=== PATIENT | female | born 1960 | race Caucasian/White ===

== ENCOUNTER 2016-06-29 19:47 | Emergency (ER) | payer OTHER ==
[~2016-06-29] VITALS: Ht 154.9 cm; Wt 53.0 kg
[~2016-06-29 19:47] MED LIST: ESTRGEL TOP; PRIL20CA PO; VITA200017 PO
[2016-06-29 20:09] VITALS: BP 133/70; PULSE 84; RESP 16; TEMP 98.2; O2SAT 96
[2016-06-29 20:34] VITALS: BP 133/70; PULSE 84; RESP 18; TEMP 98.5; O2SAT 96
--- NOTE | 2016-06-29 20:44 | PD ---
HPI Chief Complaint: Musculoskeletal Complaint Time Seen by Provider: 20:32 Travel History International Travel<30 days: No Contact w/Intl Traveler<30days: No Traveled to known affect area: No History of Present Illness HPI The patient is a 56-year-old female that complains of pain in the right lateral ribs for one day. 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 She states that she can reproduce the pain by doing the same activity. She states there is some connection when she urinates it feels better. There is no radiation of pain other than to the normal distribution of the intercostal nerves around T11 on the right only. She denies any fever, dysuria , cough, frequency, urgency or shortness of breath. She denies any nausea, vomiting or diarrhea. She denies any history of trauma. PFSH Past Medical History Cancer: No Cardiovascular Problems: No Diabetes: No Diminished Hearing: No Endocrine: No Gastrointestinal Disorders: Yes (ACID REFLUX, HIATAL HERNIA) Genitourinary: No Hepatitis: No Hiatal Hernia: Yes Immune Disorder: No Musculoskeletal: Yes (BACK PROBLEMS) Neurologic: No Psychiatric: Yes (SLIGHTLY CLAUSTROPHOBIC) Reproductive: Yes (POST MENOPAUSAL BLEEDING) Respiratory: No Immunizations Current: Yes Thyroid Disease: No Tetanus Vaccination: < 5 Years Influenza Vaccination: Yes ?: Not Menopausal: Yes Past Surgical History AICD: No Body Medical Devices: BILATERAL BREAST AUGMENTATION Joint Replacement: No Oral Surgery: Yes (T & A) Pacemaker: No Thoracic Surgery: Yes (JATIN BREAST AUGMENTATION 2001) Other Surgery: Yes (BILATERAL BREAST IMPLANTS) Social History Alcohol Use: No Tobacco Use: No Substance Use: No Allergies-Medications (Allergen,Severity, Reaction): Coded Allergies: No Known Allergies (Verified , 01/10/14) Reported Meds & Prescriptions Reported Meds & Active Scripts Active Reported Vitamin D3 (Cholecalciferol) 2,000 Unit Cap 2,000 Unit PO DAILY Prilosec (Omeprazole) 20 Mg Capcr 20 Mg PO DAILY Estrogel (Estradiol) Gel 1 Dose TOP DAILY Review of Systems Except as stated in HPI: all other systems reviewed are Neg Physical Exam Narrative GENERAL: The patient is alert, oriented 3 minimal apparent distress with her right lower lateral rib pain. Her vital signs are normal. SKIN: Warm and dry. HEAD: Atraumatic. Normocephalic. EYES: Pupils equal and round. No scleral icterus. No injection or drainage. ENT: No nasal bleeding or discharge. Mucous membranes pink and moist. NECK: Trachea midline. No JVD. CARDIOVASCULAR: Regular rate and rhythm. No murmur appreciated. RESPIRATORY: No accessory muscle use. Clear to auscultation. Breath sounds equal bilaterally. There is tenderness on the right lateral lower ribs. This partially reproduces the patient's pain. GASTROINTESTINAL: Abdomen soft, non-tender, nondistended. Hepatic and splenic margins not palpable. MUSCULOSKELETAL: No obvious deformities. No clubbing. No cyanosis. No edema. NEUROLOGICAL: Awake and alert. No obvious cranial nerve deficits. Motor grossly within normal limits. Normal speech. PSYCHIATRIC: Appropriate mood and affect; insight and judgment normal. Data Data Last Documented VS Vital Signs Date Time Temp Pulse Resp B/P Pulse Ox O2 Delivery O2 Flow Rate FiO2 06/29/16 20:37 84 18 06/29/16 20:34 98.5 133/70 96 Orders Urinalysis - C+S If Indicated (06/29/16 20:44) Ketorolac Inj (Toradol Inj) (06/29/16 21:15) Labs Laboratory Tests Test 06/29/16 20:50 Urine Color STRAW Urine Turbidity CLEAR Urine pH 6.0 Urine Specific [place] 1.009 Urine Protein NEG mg/dL Urine Glucose (UA) NEG mg/dL Urine Ketones NEG mg/dL Urine Occult Blood SMALL Urine Nitrite NEG Urine Bilirubin NEG Urine Leukocyte Esterase NEG Urine RBC 4-9 /hpf Urine Squamous Epithelial 0-5 /hpf Cells Urine Bacteria OCC /hpf Urine Mucus OCC /lpf Microscopic Urinalysis Comment CULT NOT INDICATED MDM Medical Decision Making Medical Screen Exam Complete: Yes Emergency Medical Condition: Yes Medical Record Reviewed: Yes Interpretation(s) The urine shows clear turbidity but small amount of occult blood and 4-9 red cells with occasional bacteria and culture is not indicated. Differential Diagnosis Urinary stone, musculoskeletal pain, pleurisy, fracture ribsunlikely Narrative Course The patient appears to have musculoskeletal pain. It is possible that she could have a urinary stone with minimal symptoms. She has no nausea and the pain is not as significant as one would expect from a stone in the ureter. She does have some blood in the urine. Diagnosis Primary Impression: Musculoskeletal pain Additional Instructions: As we discussed, if you develop nausea. Please return to emergency department and we should do a CAT scan. Musculoskeletal pain would not cause nausea. Follow-up next week with your primary care physician. Take the Motrin regularly , 1 tablet 3 times daily. Med/Other Pt SpecificInfo: Prescription(s) given Scripts Ibuprofen 600 Mg [id number] Mg PO TID #45 TAB Ref 0 Prov:León Rice MD 06/29/16 Disposition: 01 DISCHARGE HOME Condition: Stable León Rice MD Jun 29, 2016 20:44
[2016-06-29 20:54] LABS: BLOOD, URINE SMALL (NEG); GLUCOSE,URINE NEG (NEG); KETONE, URINE NEG (NEG); NITRITE,URINE NEG (NEG)
[2016-06-29 21:03] LABS: URINE COLOR STRAW (YELLW/STRAW)
[2016-06-29 21:04] LABS: MUCUS URINE OCC /lpf (OCC); SQUAMOUS EPITHELIAL CELL URINE 0-5 /hpf (0-5)
[2016-06-29 21:05] LABS: BACTERIA, URINE OCC /hpf; COMMENT (UR) CULT NOT INDICATED; CULTURE IF INDICATED CULT NOT INDICATED
[2016-06-29] MEDS ORDERED: KETOROLAC TROMETHAMINE 60 MG/2 ML (IM) VIAL IM ONE (21:15)
[2016-06-29] MEDS ORDERED: IBUP-232 PO (21:29)
[2016-06-29 21:36] VITALS: BP 136/70; PULSE 93; RESP 18; O2SAT 97
== END 2016-06-29 21:44 | disposition home or self-care (01) ==
LOC: PHED 19:47
DX: M79.1 Myalgia (principal)
CPT/HCPCS: 81001; 96372; 99283; J1885